=== PATIENT | female | born 1980 | race Caucasian/White ===

== ENCOUNTER 2021-01-30 19:02 | Emergency (ER) | payer MEDICAID ==
[~2021-01-30] VITALS: Ht 175.3 cm; Wt 69.0 kg
[2021-01-30] MEDS ORDERED: NS IV 1000 ML 1,000 ML IV SCH (19:15)
--- NOTE | 2021-01-30 19:16 | ED Psychosocial ---
General Stated Complaint: SUICIDAL History of Present Illness Date Seen by Provider: Jan 30, 2021 Time Seen by Provider: 19:02 Initial Comments 40-year-old female presents via EMS after acute alcohol intoxication and making threatening comments in front of law enforcement about being suicidal. Patient reports her comments were made because she was mad and under the influence of alcohol. She denies any suicidal thoughts, a plan, or past suicidal attempts. She was sober from 2011 to 2017 and then started drinking aga in, she was attending AA. She does desire to quit drinking alcohol, she isn't sure why she started drinking again. She moved to [place] from . She sees Dr. Roel Edward but has never discussed alcohol cessation with her. She denies abuse or domestic issues in the home. Timing/Duration: this evening Severity: mild Associated Symptoms: denies symptoms Allergies and Home Medications Allergies Coded Allergies: No Known Drug Allergies (Unverified , 01/30/21) Patient Home Medication List Home Medication List Reviewed: Yes Nitrofurantoin Macrocrystal (Nitrofurantoin) 100 Mg Capsule, 100 MG PO BID Prescribed by: DOMINGO CALDWELL on 01/30/212105 Review of Systems Constitutional: no symptoms reported, see HPI Genitourinary: see HPI, dysuria, frequency : No Psychiatric/Neurological: See HPI, Emotional Problems, Other (alcohol intoxication) All Other Systems Reviewed Negative Unless Noted: Yes Past Kfjbqyr-Llpasc-Jctquw Hx Patient Social History Use of E-Cig and/or Vaping dev: No E-Cig or Vaping type used: Marijuana (last use yesterday) Family Medical History Reviewed Nursing Family Hx Physical Exam Vital Signs - First Documented 01/30/21 19:02 Temp 36.8 Pulse 91 Resp 22 B/P (MAP) 156/126 (136) Pulse Ox 98 O2 Delivery Room Air Capillary Refill : Height, Weight, BMI Height: '" Weight: lbs. oz. kg; BMI Method: General Appearance: WD/WN, no apparent distress HEENT: PERRL/EOMI, normal ENT inspection, TMs normal, pharynx normal Neck: non-tender, full range of motion, supple, normal inspection Respiratory: chest non-tender, lungs clear, normal breath sounds Cardiovascular: normal peripheral pulses, regular rate, rhythm Gastrointestinal: normal bowel sounds, non tender, soft Extremities: normal range of motion, non-tender, normal inspection Neurologic/Psychiatric: jet dyeing machine tender II-XII nml as tested, no motor/sensory deficits, alert, normal mood/affect, oriented x 3 Appearance/Memory: appropriate appearance, appropriate insight, neat Behavior/Eye Contact: cooperative, good eye contact, normal speech Thoughts/Hallucinations: normal thought pattern, no apparent hallucination Skin: normal color, warm/dry Progress/Results/Core Measures Results/Orders Lab Results Laboratory Tests Test 01/30/21 19:15 01/30/21 19:58 Range/Units White Blood Count 6.7 4.3-11.0 10^3/uL Red Blood Count 4.55 3.80-5.11 10^6/uL Hemoglobin 15.0 11.5-16.0 g/dL Hematocrit 44 35-52 % Mean Corpuscular Volume 97 80-99 fL Mean Corpuscular Hemoglobin 33 25-34 pg Mean Corpuscular Hemoglobin Concent 34 32-36 g/dL Red Cell Distribution Width 13.4 10.0-14.5 % Platelet Count 269 130-400 10^3/uL Mean Platelet Volume 10.7 9.0-12.2 fL Immature Granulocyte % (Auto) 0 % Neutrophils (%) (Auto) 54 42-75 % Lymphocytes (%) (Auto) 33 12-44 % Monocytes (%) (Auto) 11 0-12 % Eosinophils (%) (Auto) 1 0-10 % Basophils (%) (Auto) 1 0-10 % Neutrophils # (Auto) 3.6 1.8-7.8 10^3/uL Lymphocytes # (Auto) 2.2 1.0-4.0 10^3/uL Monocytes # (Auto) 0.7 0.0-1.0 10^3/uL Eosinophils # (Auto) 0.1 0.0-0.3 10^3/uL Basophils # (Auto) 0.1 0.0-0.1 10^3/uL Immature Granulocyte # (Auto) 0.0 0.0-0.1 10^3/uL Sodium Level 144 135-145 MMOL/L Potassium Level 3.5 L 3.6-5.0 MMOL/L Chloride Level 108 H 98-107 MMOL/L Carbon Dioxide Level 21 21-32 MMOL/L Anion Gap 15 H 5-14 MMOL/L Blood Urea Nitrogen 12 7-18 MG/DL Creatinine 0.70 0.60-1.30 MG/DL Estimat Glomerular Filtration Rate 93 BUN/Creatinine Ratio 17 Glucose Level 93 70-105 MG/DL Calcium Level 9.4 8.5-10.1 MG/DL Corrected Calcium 9.0 8.5-10.1 MG/DL Total Bilirubin 0.2 0.1-1.0 MG/DL Aspartate Amino Transf (AST/SGOT) 23 5-34 U/L Alanine Aminotransferase (ALT/SGPT) 15 0-55 U/L Alkaline Phosphatase 52 40-136 U/L Total Protein 7.8 6.4-8.2 GM/DL Albumin 4.5 3.2-4.5 GM/DL Serum Test, Qualitative NEGATIVE NEGATIVE Salicylates Level < 5.0 L 5.0-20.0 MG/DL Acetaminophen Level < 10 L 10-30 UG/ML Serum Alcohol 251 H <10 MG/DL Urine Color YELLOW Urine Clarity CLEAR Urine pH 6.0 5-9 Urine Specific [place] 1.025 H 1.016-1.022 Urine Protein NEGATIVE NEGATIVE Urine Glucose (UA) NEGATIVE NEGATIVE Urine Ketones NEGATIVE NEGATIVE Urine Nitrite POSITIVE H NEGATIVE Urine Bilirubin NEGATIVE NEGATIVE Urine Urobilinogen 0.2 < = 1.0 MG/DL Urine Leukocyte Esterase NEGATIVE NEGATIVE Urine RBC (Auto) 1+ H NEGATIVE Urine RBC 0-2 /HPF Urine WBC 5-10 H /HPF Urine Crystals NONE /LPF Urine Bacteria LARGE H /HPF Urine Casts NONE /LPF Urine Mucus NEGATIVE /LPF Urine Culture Indicated YES Urine Opiates Screen NEGATIVE NEGATIVE Urine Oxycodone Screen NEGATIVE NEGATIVE Urine Methadone Screen NEGATIVE NEGATIVE Urine Propoxyphene Screen NEGATIVE NEGATIVE Urine Barbiturates Screen NEGATIVE NEGATIVE Ur Tricyclic Antidepressants Screen NEGATIVE NEGATIVE Urine Phencyclidine Screen NEGATIVE NEGATIVE Urine Amphetamines Screen NEGATIVE NEGATIVE Urine Methamphetamines Screen NEGATIVE NEGATIVE Urine Benzodiazepines Screen NEGATIVE NEGATIVE Urine Cocaine Screen NEGATIVE NEGATIVE Urine Cannabinoids Screen POSITIVE H NEGATIVE My Orders Orders - JAVI,DOMING[employer] Ua Culture If Indicated (01/30/21 19:04) Cbc With Automated Diff (01/30/21 19:04) Comprehensive Metabolic Panel (01/30/21 19:04) Alcohol (01/30/21 19:04) Drug Screen Stat (Urine) (01/30/21 19:04) Acetaminophen (01/30/21 19:04) Salicylate (01/30/21 19:04) Ekg Tracing (01/30/21 19:04) Ed Iv/Invasive Line Start (01/30/21 19:04) Monitor-Rhythm Ecg Trace Only (01/30/21 19:04) Bh Status Checks/Observation Q15M (01/30/21 19:04) Ed Iv/Invasive Line Start (01/30/21 19:14) Ns Iv 1000 Ml (Sodium Chloride 0.9%) (01/30/21 19:15) Hcg,Qualitative Serum (01/30/21 19:14) Urine Culture (01/30/21 19:58) Rx-Nitrofurantoin [place] (Rx-Macrobid) (01/30/21 21:12) Vital Signs/I&O 01/30/21 01/30/21 19:02 21:45 Temp 36.8 Pulse 91 82 Resp 22 20 B/P (MAP) 156/126 (136) 134/92 Pulse Ox 98 99 O2 Delivery Room Air Room Air Progress Progress Note : Time: 19:02 Progress Note Patient seen and evaluated, will obtain labs, EKG and normal saline 1 L. We will continue to monitor patient. 2000 patient resting, no complaints at this time. Continues to deny suicidal thoughts. 2099 spoke to patient's boyfriend (after permission from her was obtained), he is agreeable to her d/c to home. Follow up with PCP for referral for inpatient, medication assisted alcohol cessation. Patient alert, oriented, drinking water. No complaints. 2139 patient has continued to be cooperative and compliant. Boyfriend present to take her home. Discharge instructions and return precautions reviewed. Initial ECG Impression Date: Jan 30, 2021 Initial ECG Impression Time: 19:58 Initial ECG Rate: 65 Initial ECG Rhythm: Normal Sinus Initial ECG Intervals: Normal Initial ECG Intervals NC 97, QRSD 92, QT 384, QTc 400 [place] P 8, QRS 67, T 40 Initial ECG Impression: Normal Initial ECG Comparisson: No Previous ECG Available Departure Impression Primary Impression: Acute alcoholic intoxication Qualified Codes: F10.920 - Alcohol use, unspecified with intoxication, uncomplicated Additional Impressions: Alcohol abuse UTI (urinary tract infection) Qualified Codes: N30.01 - Acute cystitis with hematuria Disposition: HOME, SELF-CARE Condition: Improved Departure-Patient Inst. Decision time for Depature: 20:50 Patient Instructions: ALCOHOL AND SUBSTANCE ABUSE, Alcohol Use Disorder (DC), Urinary Tract Infection, Adult (DC) Add. Discharge Instructions: Follow-up with Dr. Edward and consider rehab for alcohol cessation or medication assisted treatment. You can [facility] in [place], for consideration to go there. Increase water intake in your diet. Take antibiotic as prescribed. Call [phone] for thoughts to harm yourself or others. See mental health at [facility] and re-join AA. Return to the emergency department for new, urgent healthcare needs. Scripts Nitrofurantoin Macrocrystal (Nitrofurantoin) 100 Mg Capsule 100 MG PO BID, #14 CAP 0 Refills Prov: DOMINGO CALDWELL 01/30/21 Copy Copies To 1: ROEL EDWARD MD, AMY ARNP Jan 30, 2021 19:16
[2021-01-30 19:32] LABS: BASOPHILS # (AUTO) 0.1 10^3/uL (0.0-0.1); BASOPHILS % (AUTO) 1 % (0-10); EOSINOPHILS # (AUTO) 0.1 10^3/uL (0.0-0.3); EOSINOPHILS % (AUTO) 1 % (0-10); HEMATOCRIT 44 % (35-52); LYMPHOCYTES # (AUTO) 2.2 10^3/uL (1.0-4.0); LYMPHOCYTES % (AUTO) 33 % (12-44); MEAN CORPUSCULAR HEMOGLOBIN 33 pg (25-34); MEAN CORPUSCULAR HGB CONC 34 g/dL (32-36); MEAN CORPUSCULAR VOLUME 97 fL (80-99); MEAN PLATELET VOLUME 10.7 fL (9.0-12.2); MONOCYTES # (AUTO) 0.7 10^3/uL (0.0-1.0); MONOCYTES % (AUTO) 11 % (0-12); NEUTROPHILS # (AUTO) 3.6 10^3/uL (1.8-7.8); NEUTROPHILS % (AUTO) 54 % (42-75); PLATELET COUNT 269 10^3/uL (130-400); WHITE BLOOD COUNT 6.7 10^3/uL (4.3-11.0)
[2021-01-30 19:57] LABS: ALANINE AMINOTRANSFERASE 15 U/L (0-55); ALBUMIN 4.5 GM/DL (3.2-4.5); ALKALINE PHOSPHATASE 52 U/L (40-136); BILIRUBIN,TOTAL 0.2 MG/DL (0.1-1.0); BUN/CREATININE RATIO 17; CALCIUM 9.4 MG/DL (8.5-10.1); CARBON DIOXIDE 21 MMOL/L (21-32); CHLORIDE 108 MMOL/L (98-107); GFR ESTIMATED 93; GLUCOSE 93 MG/DL (70-105); POTASSIUM 3.5 MMOL/L (3.6-5.0); SALICYLATE < 5.0 MG/DL (5.0-20.0); SODIUM 144 MMOL/L (135-145); TOTAL PROTEIN 7.8 GM/DL (6.4-8.2)
[2021-01-30 19:59] LABS: ACETAMINOPHEN < 10 UG/ML (10-30)
[2021-01-30 20:06] LABS: BILIRUBIN,URINE NEGATIVE (NEGATIVE); CLARITY,URINE CLEAR; COLOR,URINE YELLOW; GLUCOSE, URINE (UA) NEGATIVE (NEGATIVE); KETONES,URINE NEGATIVE (NEGATIVE); LEUKOCYTE ESTERASE ,URINE NEGATIVE (NEGATIVE); NITRITE,URINE POSITIVE (NEGATIVE); PROTEIN,URINE NEGATIVE (NEGATIVE)
[2021-01-30 20:19] LABS: AMPHETAMINE SCREEN, URINE NEGATIVE (NEGATIVE); BARBITURATE SCREEN URINE NEGATIVE (NEGATIVE); BENZODIAZEPINES SCREEN URINE NEGATIVE (NEGATIVE); CANNABINOID SCREEN, URINE POSITIVE (NEGATIVE); COCAINE SCREEN URINE NEGATIVE (NEGATIVE); METHADONE STAT NEGATIVE (NEGATIVE); METHAMPHETAMINE SCREEN URINE S NEGATIVE (NEGATIVE); OPIATE SCREEN URINE NEGATIVE (NEGATIVE); OXYCODONE STAT NEGATIVE (NEGATIVE); PROPOXYPHENE STAT NEGATIVE (NEGATIVE); TRICYCLIC ANTIDEPRESSANTS SCRE NEGATIVE (NEGATIVE)
[2021-01-30 20:20] LABS: BACTERIA,URINE LARGE /HPF
[2021-01-30 20:21] LABS: RBC,URINE 0-2 /HPF
[2021-01-30] MEDS ORDERED: NITR100C PO (21:06)
[2021-01-30] MEDS ORDERED: RX-NITROFURANTOIN 100 MG (MACROBID) CAP PPK#2 PO STA (21:12)
[2021-01-30 21:45] VITALS: BP 134/92
== END 2021-01-30 21:45 | disposition home or self-care (01) ==
LOC: ER 19:05
DX: F10.129 Alcohol abuse with intoxication, unspecified (principal); N39.0 Urinary tract infection, site not specified
CPT/HCPCS: 80053; 80306; 81000; 84703; 85025; 87077; 87088; 93005; 93041; 99284; G0480 ×3; 36415; 80320; 80329; 87186

== ENCOUNTER 2022-12-27 10:39 | Emergency (ER) | payer SELFPAY ==
[~2022-12-27] VITALS: Ht 170 cm; Wt 68.0 kg
[~2022-12-27 10:39] MED LIST: NITR100C PO
[2022-12-27] MEDS ORDERED: LABETALOL 5 mg/ml 4 ML SINGLE DOSE SYRINGE IV ONE (11:30)
--- NOTE | 2022-12-27 11:31 | ED Cardiac General ---
History of Present Illness General Chief Complaint: Cardiac/General Problems Stated Complaint: HIGH BLOOD PRESSURE | 198/130 Source: patient Exam Limitations: no limitations History of Present Illness Date Seen by Provider: Dec 27, 2022 Time Seen by Provider: 11:15 Initial Comments 42-year-old female presents to the ER for hypertension. She states that she went to the walk-in clinic today to be tested for COVID. She reports that since 12/24/2022, she had a cough, headache, and mild shortness of air with exertion. She also thinks she had a mild fever on Friday, but did not check with a thermometer. Denies fever since then. When she went to the clinic, they found that her blood pressure was significantly elevated. Patient reports she has a past medical history of hypertension, she currently takes carvedilol 6.25 mg twice a day. She denies fever, dizziness, chest pain. Allergies and Home Medications Allergies Coded Allergies: No Known Drug Allergies (Unverified , 01/30/21) Patient Home Medication List Home Medication List Reviewed: Yes Amlodipine Besylate (Amlodipine Besylate) 5 Mg Tablet, 5 MG PO DAILY Prescribed by: Vero Freed on 12/27/22 1328 Nitrofurantoin Macrocrystal (Nitrofurantoin) 100 Mg Capsule, 100 MG PO BID Prescribed by: DOMINGO CALDWELL on 01/30/212105 Review of Systems Review of Systems Constitutional: see HPI Past Ufxehxn-Pollst-Ixvqjv Hx Patient Social History Tobacco Use?: Yes Tobacco type used: Cigarettes Smoking Status: Current Everyday Smoker Alcohol Use?: No Immunizations Up To Date First/Initial COVID19 Vaccinat: NONE Second COVID19 Vaccination Colin: NONE Past Medical History Surgery/Hospitalization HX: TUBAL LIGATION Physical Exam Vital Signs Vital Signs - First Documented 12/27/22 11:20 Pulse 75 Resp 20 B/P (MAP) 217/140 (165) Pulse Ox 99 O2 Delivery Room Air Capillary Refill : Height, Weight, BMI Height: '" Weight: lbs. oz. kg; 22.00 BMI Method: General Appearance: No Apparent Distress, WD/WN Neck: Normal Inspection, Supple Respiratory: Lungs Clear, Normal Breath Sounds, No Accessory Muscle Use, No Respiratory Distress Cardiovascular: Regular Rate, Rhythm Extremity: Normal Inspection, Normal Range of Motion Neurologic/Psychiatric: Alert, Normal Mood/Affect Skin: Normal Color, Warm/Dry Progress/Results/Core Measures Results/Orders Lab Results Laboratory Tests Test 12/27/22 11:32 Range/Units White Blood Count 6.3 4.3-11.0 10^3/uL Red Blood Count 5.38 H 3.80-5.11 10^6/uL Hemoglobin 16.5 H 11.5-16.0 g/dL Hematocrit 49 35-52 % Mean Corpuscular Volume 91 80-99 fL Mean Corpuscular Hemoglobin 31 25-34 pg Mean Corpuscular Hemoglobin Concent 34 32-36 g/dL Red Cell Distribution Width 14.3 10.0-14.5 % Platelet Count 231 130-400 10^3/uL Mean Platelet Volume 11.5 9.0-12.2 fL Immature Granulocyte % (Auto) 0 % Neutrophils (%) (Auto) 73 42-75 % Lymphocytes (%) (Auto) 15 12-44 % Monocytes (%) (Auto) 10 0-12 % Eosinophils (%) (Auto) 1 0-10 % Basophils (%) (Auto) 1 0-10 % Neutrophils # (Auto) 4.6 1.8-7.8 10^3/uL Lymphocytes # (Auto) 1.0 1.0-4.0 10^3/uL Monocytes # (Auto) 0.6 0.0-1.0 10^3/uL Eosinophils # (Auto) 0.0 0.0-0.3 10^3/uL Basophils # (Auto) 0.1 0.0-0.1 10^3/uL Immature Granulocyte # (Auto) 0.0 0.0-0.1 10^3/uL Sodium Level 136 135-145 MMOL/L Potassium Level 3.5 L 3.6-5.0 MMOL/L Chloride Level 101 98-107 MMOL/L Carbon Dioxide Level 21 21-32 MMOL/L Anion Gap 14 5-14 MMOL/L Blood Urea Nitrogen 10 7-18 MG/DL Creatinine 0.69 0.60-1.30 MG/DL Estimat Glomerular Filtration Rate 111 BUN/Creatinine Ratio 14 Glucose Level 95 70-105 MG/DL Calcium Level 9.6 8.5-10.1 MG/DL Corrected Calcium 8.5-10.1 MG/DL Magnesium Level 2.0 1.6-2.4 MG/DL Total Bilirubin 1.1 H 0.1-1.0 MG/DL Aspartate Amino Transf (AST/SGOT) 21 5-34 U/L Alanine Aminotransferase (ALT/SGPT) 14 0-55 U/L Alkaline Phosphatase 75 40-136 U/L Total Protein 7.9 6.4-8.2 GM/DL Albumin 4.6 H 3.2-4.5 GM/DL My Orders Orders - VERO STEIN APRN Cbc With Automated Diff (12/27/22 11:21) Magnesium (12/27/22 11:21) Ekg Tracing (12/27/22 11:21) Comprehensive Metabolic Panel (12/27/22 11:21) Monitor-Rhythm Ecg Trace Only (12/27/22 11:21) Ed Iv/Invasive Line Start (12/27/22 11:21) Labetalol Injection (Sdv) (Labetalol Inj (12/27/22 11:30) Amlodipine Tablet (Amlodipine Tablet) (12/27/22 13:00) Medications Given in ED Current Medications Medications Dose Ordered Sig/[place] Route Start Time Stop Time Status Last Admin Dose Admin Amlodipine Besylate 5 mg ONCE ONCE PO 12/27/22 13:00 12/27/22 13:01 DC 12/27/22 12:51 5 MG Labetalol HCl 10 mg ONCE ONCE IV 12/27/22 11:30 12/27/22 11:31 DC 12/27/22 11:42 10 MG Vital Signs/I&O 12/27/22 12/27/22 11:20 13:49 Pulse 75 Resp 20 B/P (MAP) 217/140 (165) 168/109 Pulse Ox 99 O2 Delivery Room Air Progress Progress Note : Progress Note Patient seen and evaluated, resting comfortably in recliner, no acute distress. Based on exam and symptoms, work-up initiated including CBC, CMP, magnesium, EKG . Labetalol ordered. 1225 Labs reviewed. CBC shows slightly elevated RBC 5.38, slightly elevated hemoglobin 16.5. CMP shows slightly decreased potassium 3.5, total bilirubin slightly elevated 1.1, albumin slightly elevated 4.6. I attempted to call kaleb ent's primary care provider, Dr. Roel Edward, to get her recommendations for treatment options. Was unable to get a hold of her, she is out of the office on Fridays. 1246 patient reports that her headache has improved now that her blood pressure has improved. It is down to 168/116. I will give her a on amlodipine here now and discharge with prescription for amlodipine. Will monitor for short period after amlodipine administered here in the ER. Side effect of lower extremity swelling from amlodipine discussed with patient. Patient instructed to follow- up with primary care provider regarding her blood pressure. Discharge ins tructions and return precautions provided. Initial ECG Impression Date: Dec 27, 2022 Initial ECG Impression Time: 11:46 Initial ECG Rate: 60 Initial ECG Rhythm: Normal Sinus Initial ECG Intervals: NE Initial ECG Impression: Normal Initial ECG Comparisson: Unchanged Departure Impression Primary Impression: Hypertension Qualified Codes: I10 - Essential (primary) hypertension Disposition: 01 HOME, SELF-CARE Condition: Stable Departure-Patient Inst. Decision time for Depature: 13:26 Referrals: ROEL EDWARD MD (PCP/Family) Primary Care Physician Patient Instructions: High Blood Pressure (DC) Add. Discharge Instructions: Continue taking your carvedilol as prescribed. Taking amlodipine 5 mg once a day. Call [facility] today to schedule a follow-up appointment for next week. Return for severe headache, weakness numbness on one side your body, or any other new, concerning, or worsening symptoms. All discharge instructions reviewed with patient and/or family. Voiced understanding. Scripts Amlodipine Besylate (Amlodipine Besylate) 5 Mg Tablet 5 MG PO DAILY for 30 Days, #30 TAB 0 Refills Prov: VERO STEIN APRN 12/27/22 Copy Copies To 1: ROEL EDWARD MD Copies To 2: [facility] VERO STEIN APRN Dec 27, 2022 11:31
[2022-12-27 11:42] LABS: BASOPHILS # (AUTO) 0.1 10^3/uL (0.0-0.1); BASOPHILS % (AUTO) 1 % (0-10); EOSINOPHILS % (AUTO) 1 % (0-10); HEMATOCRIT 49 % (35-52); HEMOGLOBIN 16.5 g/dL (11.5-16.0); LYMPHOCYTES % (AUTO) 15 % (12-44); MEAN CORPUSCULAR HEMOGLOBIN 31 pg (25-34); MEAN CORPUSCULAR HGB CONC 34 g/dL (32-36); MEAN CORPUSCULAR VOLUME 91 fL (80-99); MEAN PLATELET VOLUME 11.5 fL (9.0-12.2); MONOCYTES # (AUTO) 0.6 10^3/uL (0.0-1.0); MONOCYTES % (AUTO) 10 % (0-12); NEUTROPHILS # (AUTO) 4.6 10^3/uL (1.8-7.8); NEUTROPHILS % (AUTO) 73 % (42-75); PLATELET COUNT 231 10^3/uL (130-400); WHITE BLOOD COUNT 6.3 10^3/uL (4.3-11.0)
[2022-12-27 11:52] LABS: ALBUMIN 4.6 GM/DL (3.2-4.5)
[2022-12-27 11:53] LABS: CHLORIDE 101 MMOL/L (98-107); POTASSIUM 3.5 MMOL/L (3.6-5.0); SODIUM 136 MMOL/L (135-145)
[2022-12-27 11:54] LABS: CALCIUM 9.6 MG/DL (8.5-10.1)
[2022-12-27 11:55] LABS: GLUCOSE 95 MG/DL (70-105); TOTAL PROTEIN 7.9 GM/DL (6.4-8.2)
[2022-12-27 11:56] LABS: CARBON DIOXIDE 21 MMOL/L (21-32)
[2022-12-27 11:57] LABS: BILIRUBIN,TOTAL 1.1 MG/DL (0.1-1.0)
[2022-12-27 11:58] LABS: ALKALINE PHOSPHATASE 75 U/L (40-136)
[2022-12-27 11:59] LABS: CREATININE SERUM 0.69 MG/DL (0.60-1.30); GFR ESTIMATED 111
[2022-12-27 12:00] LABS: BUN/CREATININE RATIO 14
[2022-12-27 12:01] LABS: ALANINE AMINOTRANSFERASE 14 U/L (0-55)
[2022-12-27] MEDS ORDERED: amLODIPine 5 MG TABLET PO ONE (13:00)
[2022-12-27] MEDS ORDERED: AMLO-250 PO (13:28)
[2022-12-27 13:49] VITALS: BP 168/109
== END 2022-12-27 13:31 | disposition home or self-care (01) ==
LOC: EDUNIT# 10:39 → ER 10:42
DX: I10 Essential (primary) hypertension (principal); F17.210 Nicotine dependence, cigarettes, uncomplicated; Z28.310 Unvaccinated for COVID-19; Z79.899 Other long term (current) drug therapy
CPT/HCPCS: 36415; 80053; 83735; 85025; 93005; 93041